=== PATIENT | female | born 1995 | race Caucasian/White ===

== ENCOUNTER 2019-01-11 15:51 | Emergency (ER) | payer SELFPAY ==
[~2019-01-11] VITALS: Ht 170.2 cm; Wt 68.9 kg
[2019-01-11] MEDS ORDERED: PROP80CA PO (16:16)
--- NOTE | 2019-01-11 16:49 | NUR ---
DCPatient discharged to home in stable condition. Written and verbal after care instructions given. Patient verbalizes understanding of instruction.
[2019-01-11 16:50] VITALS: BP 112/80
== END 2019-01-11 16:54 | disposition home or self-care (01) ==
LOC: ER 15:58
DX: F31.9 Bipolar disorder, unspecified (principal); Z76.0 Encounter for issue of repeat prescription; Z79.899 Other long term (current) drug therapy